=== PATIENT | male | born 1985 | race Caucasian/White ===

== ENCOUNTER 2023-05-01 08:50 | Emergency (ER) | payer OTHER ==
[~2023-05-01] VITALS: Ht 182.9 cm; Wt 80.5 kg
[2023-05-01 08:51] VITALS: BP 138/87; TEMP 98; O2SAT 96
[2023-05-01] MEDS ORDERED: KETOROLAC 60MG 2ML VIAL IM ONE (12:45)
[2023-05-01] MEDS ORDERED: METH-1164 PO (12:45)
== END 2023-05-01 12:50 | disposition home or self-care (01) ==
LOC: M ED 08:50
DX: M47.22 Other spondylosis with radiculopathy, cervical region (principal); F17.200 Nicotine dependence, unspecified, uncomplicated; F10.10 Alcohol abuse, uncomplicated; Z79.891 Long term (current) use of opiate analgesic
CPT/HCPCS: 72125; 72128; 96372; 99282; J1885